=== PATIENT | female | born 1985 | race Caucasian/White ===

== ENCOUNTER 2018-06-27 02:00 | Emergency (ER) | payer MEDICAID ==
[2018-06-27] MEDS ORDERED: LIDOCAINE 1% (MDV) 10 ML INJ INFIL (04:03)
[2018-06-27] MEDS: HYDROCODONE/APAP (10/325) TAB PO (04:51)
[2018-06-27] MEDS: LIDOCAINE 1% (MDV) 20 ML INJ INFIL (05:00)
[2018-06-27] MEDS ORDERED: CEFTRIAXONE 1 GM INJ IM (05:00)
== END 2018-06-27 05:38 | disposition home or self-care (01) ==
LOC: FTE 02:00
DX: L02.211 Cutaneous abscess of abdominal wall (principal)
CPT/HCPCS: 10060; 81025; 99284-25

== ENCOUNTER 2018-06-29 07:04 | Emergency (ER) | payer MEDICAID | END 2018-06-29 07:46 | disposition home or self-care (01) | LOC: FTE 07:04 | DX: Z48.01 Encounter for change or removal of surgical wound dressing (principal) | CPT/HCPCS: 99281; Z7502 ==

== ENCOUNTER 2018-07-01 07:24 | Emergency (ER) | payer MEDICAID ==
[2018-07-01] MEDS: HYDROCODONE/APAP (5/325) TAB PO (07:46)
== END 2018-07-01 08:23 | disposition home or self-care (01) ==
LOC: FTE 07:24
DX: L02.211 Cutaneous abscess of abdominal wall (principal)
CPT/HCPCS: 99284; Z7502